=== PATIENT | male | born 1990 | race American Indian/Alaskan Native ===

== ENCOUNTER 2018-12-31 07:08 | Emergency (ER) | payer SELFPAY ==
[2018-12-31 07:15] VITALS: BP 142/85
--- NOTE | 2018-12-31 08:21 | Emergency Department Report ---
Eye Injury/Foreign Body - HPI Duration: 3 Days Eye Location: Left Severity: Moderate Eye Symptoms: Eye Pain: Yes, Blurred Vision: No, Eye Redness: Yes, Grinding/Hammering Metal: No, Used Eye Protection: No, Contact Lens Use: No, Recalls Injury: Yes, Photophobia: No ED Review of Systems ROS: Stated complaint: LT EYE RED/IRRIATATED Other details as noted in HPI Comment: All other systems reviewed and negative Constitutional: denies: chills, fever Eyes: eye pain, eye discharge. denies: vision change Cardiovascular: denies: chest pain, palpitations Gastrointestinal: denies: abdominal pain Musculoskeletal: denies: back pain Neurological: denies: headache, weakness, numbness, paresthesias, confusion ED Past Medical Hx - Past Medical History Previous Medical History?: No - Surgical History Past Surgical History?: No - Social History Smoking Status: Current Every Day Smoker Substance Use Type: None - Medications Home Medications: Home Medications Medication Instructions Recorded Confirmed Last Taken Type No Known Home Medications [No 01/26/16 01/26/16 Unknown History Reported Home Medications] Eye Injury Exam - Exam General: Vital signs noted. No distress. Alert and acting appropriately. - Visual Acuity Left Vision Acuity Degree: 20/20 Eye Exam: Left Injection, Both EOMI, Neither Chemosis, Neither Abnormal Pupil, Neither Eye Foreign Body, Neither Lid Foreign Body, Neither Mucous Discharge, Neither Purulent Discharge, Neither Fluorescein Uptake, Neither Fluorescein Uptake (slit lamp), Neither Corneal Edema, Neither Photophobia ED Course Vital Signs 12/31/18 07:11 Temperature 98.8 F Pulse Rate 102 H Respiratory 16 Rate Blood Pressure 142/85 O2 Sat by Pulse 96 Oximetry ED Medical Decision Making - Medical Decision Making Patient is 28 years old male with no significant past medical history. Patient presented to the ER complaining of left eye pain and redness for the last 4 days. Patient stated that he had some soapy spelled on his eyes while he was working 5 days ago. Patient stated that he felt the change the next day. Patient denied any visual changes. No photophobia. Extraocular movement intact. Patient denied any fever, chills, nausea or vomiting. Patient be given Polytrim and Patanol and advised to follow-up with medicaid plan compliance director in the next 2-3 days and to return to the ER if symptoms are not improved. Critical care attestation.: If time is entered above; I have spent that time in minutes in the direct care of this critically ill patient, excluding procedure time. ED Disposition Clinical Impression: Conjunctivitis Disposition: DC-01 TO HOME OR SELFCARE Is pt being admited?: No Condition: Stable Instructions: Conjunctivitis (ED) Referrals: LALI TUCKER MD [Staff Physician] - 3-5 Days
== END 2018-12-31 08:50 | disposition home or self-care (01) ==
LOC: ED 07:08
DX: H10.9 Unspecified conjunctivitis (principal); F17.200 Nicotine dependence, unspecified, uncomplicated

== ENCOUNTER 2020-04-16 10:26 | Emergency (ER) | payer SELFPAY ==
[2020-04-16 10:41] VITALS: BP 139/85
--- NOTE | 2020-04-16 10:44 | Event Note ---
ED Screening Note ED Screening Note: co bp elevated initially intermittent headache then co radicular pain of rle then added testicular numbness that comes and goes with testicular pain off and on no dc pmh none no trauma rx none cig etoh denies drugs no cp or sob This initial assessment/diagnostic orders/clinical plan/treatment(s) is/are subject to change based on patients health status, clinical progression and re- assessment by fellow clinical providers in the ED. Further treatment and workup at subsequent clinical providers discretion. Patient/guardian urged not to elope from the ED as their condition may be serious if not clinically assessed and managed. Initial orders include: us ro torsion ? sciatica lumbar etio bp normal
--- NOTE | 2020-04-16 11:47 | XRay Report ---
LUMBOSACRAL SPINE 3 VIEWS INDICATION: radicular pain. COMPARISON: None. IMPRESSION: Normal alignment. No significant discogenic DJD or facet arthropathy. No acute osseous or soft tissue abnormality. Signer Name: Alejandro Caruso Jr, MD Signed: 04/16/2020 11:42 AM Workstation Name: [id number]
--- NOTE | 2020-04-16 12:16 | Ultrasound Report ---
ULTRASOUND TESTICULAR DOPPLER COMPLETE HISTORY: Testicular pain and numbness TECHNIQUE: Grayscale ultrasound with color and spectral Doppler imaging. COMPARISON: None. FINDINGS: The right testicle measures 4.1 x 2.4 x 2.7 cm. The left testicle measures 4.2 x 2.2 x 2.7 cm. Both testicles are mildly heterogeneous but no evidence for cyst, mass or calcifications. Spectra l Doppler waveforms demonstrate arterial flow bilaterally. The epididymides are unremarkable. No hyperemia. No significant hydrocele or varicocele. IMPRESSION: No abnormality identified. Signer Name: Alejandro Caruso Jr, MD Signed: 04/16/2020 12:11 PM Workstation Name: [id number]
[2020-04-16 13:22] LABS: Bilirubin,Urine NEG (Negative); Blood,Urine NEG (Negative); Color,Urine Yellow (Yellow); Mucus,Urine FEW /HPF; Protein,Urine <15 mg/dL mg/dL (Negative)
--- NOTE | 2020-04-16 13:30 | Emergency Department Report ---
ED General Adult HPI - General Chief complaint: High BP Stated complaint: HIGH BLOOD PRESSURE/HEADACHE PUI?: No Time Seen by Provider: 04/16/20 10:37 Source: patient Mode of arrival: Ambulatory Limitations: No Limitations - History of Present Illness Initial comments: Patient is a 29-year-old male that checks into the ER today for blood pressure check. He has been checking his blood pressure at home and thought that it was elevated. On arrival his blood pressure is normal. He has no chest pain shortness of breath or headache. On further interview patient endorses testicular pain. He denies any dysuria or discharge. He is not concerned for STDs. He states that sometimes he notices that his testicles are numb and other times they are painful. He denies any trauma. He denies any back pain. He denies any nausea vomiting or diarrhea. He denies any abdominal pain. Patient then adds that he has had some right thigh pain. He denies any back injury. His symptoms are not consistent with cauda equina. He is urinating and defecating without difficulty. He is neuro intact with no focal deficit and ambulatory, [id number] in triage. -: Gradual, days(s) Improves with: none Worsens with: none Associated Symptoms: denies other symptoms Treatments Prior to Arrival: none - Related Data Allergies Allergy/AdvReac Type Severity Reaction Status Date / Time No Known Allergies Allergy Verified 04/16/20 10:38 ED Review of Systems ROS: Stated complaint: HIGH BLOOD PRESSURE/HEADACHE Other details as noted in HPI Comment: All other systems reviewed and negative ED Past Medical Hx - Past Medical History Previous Medical History?: No - Surgical History Past Surgical History?: No - Family History Family history: no significant - Social History Smoking Status: Never Smoker Substance Use Type: None ED Physical Exam - General Limitations: No Limitations General appearance: alert, in no apparent distress - Head Head exam: Present: atraumatic, normocephalic - Eye Eye exam: Present: normal appearance - ENT ENT exam: Present: mucous membranes moist - Neck Neck exam: Present: normal inspection - Respiratory Respiratory exam: Present: normal lung sounds bilaterally. Absent: respiratory distress - Cardiovascular Cardiovascular Exam: Present: regular rate, normal rhythm. Absent: systolic murmur, diastolic murmur, rubs, gallop - GI/Abdominal GI/Abdominal exam: Present: soft, normal bowel sounds - Rectal Rectal exam: Present: deferred - Extremities Exam Extremities exam: Present: normal inspection - Back Exam Back exam: Present: normal inspection - Neurological Exam Neurological exam: Present: alert, oriented X3 - Psychiatric Psychiatric exam: Present: normal affect, normal mood - Skin Skin exam: Present: warm, dry, intact, normal color. Absent: rash ED Course Vital Signs 04/16/20 10:40 Temperature 99.1 F Pulse Rate 101 H Respiratory 18 Rate Blood Pressure 139/85 O2 Sat by Pulse 99 Oximetry ED Medical Decision Making - Radiology Data Radiology results: report reviewed, image reviewed [facility] - Medical Decision Making Vital Signs 04/16/20 10:40 Temperature 99.1 F Pulse Rate 101 H Respiratory 18 Rate Blood Pressure 139/85 O2 Sat by Pulse 99 Oximetry Labs 04/16/20 12:57 Urine Color Yellow Urine Turbidity Clear Urine pH 6.0 Ur Specific [place] 1.016 Urine Protein <15 mg/dl Urine Glucose (UA) Neg Urine Ketones Neg Urine Blood Neg Urine Nitrite Neg Urine Bilirubin Neg Urine Urobilinogen 4.0 Ur Leukocyte Esterase Neg Urine WBC (Auto) 1.0 Urine RBC (Auto) 1.0 U Epithel Cells (Auto) < 1.0 Urine Mucus Few UA noted. lumbar xray noted Ultrasound noted. Patient discharged home with discharge plan of care including monitoring his blood pressure. He has been given referral to primary care for follow-up. Patient verbalizes understanding of discharge plan of care. Patient is ambulatory nontoxic and [id number] on discharge - Differential Diagnosis ro test torsion Critical care attestation.: If time is entered above; I have spent that time in minutes in the direct care of this critically ill patient, excluding procedure time. ED Disposition Clinical Impression: Wellness examination, Lumbar pain, Blood pressure check Disposition: TO HOME OR SELFCARE Is pt being admited?: No Does the pt Need Aspirin: No Condition: Stable Instructions: Hypertension, Adult, [id number], Back Injury Prevention Additional Instructions: MOTRIN OR TYLENOL FOR PAIN FOLLOW UP WITH PCP FOR BLOOD PRESSURE EVALUATION FOLLOW UP WITH [facility]THO IF LEG PAIN PERSISTS REFERRAL BELOW Referrals: JAVED OSPINA MD [Staff Physician] - 3-5 Days SHELLIE ZHAO MD [Staff Physician] - 3-5 Days Time of Disposition: 13:28
== END 2020-04-16 13:52 | disposition home or self-care (01) ==
LOC: ED 10:26
DX: M54.5 Low back pain (principal); Z01.30 Encounter for examination of blood pressure without abnormal findings
CPT/HCPCS: 72100; 81001; 93975

== ENCOUNTER 2021-08-22 07:09 | Emergency (ER) | payer SELFPAY ==
--- NOTE | 2021-08-22 08:32 | Emergency Department Report ---
ED Altered Mental Status HPI - General Chief Complaint: Altered Mental Status Stated Complaint: AMS Time Seen by Provider: 08/22/21 07:57 Source: family, EMS, old records reviewed Mode of arrival: Stretcher Limitations: Altered Mental Status, Physical Limitation - History of Present Illness Initial Comments: History provided by mother since patient will and will not communicate at this time. 30-year-old male with a past medical history of diabetes, hypertension, and sarcoidosis diagnosed 4 months ago presents to the hospital with alteration in mental status. Patient was previous prescribed insulin for his diabetes and blood pressure medication but has been noncompliant for 4 months since discharge from the hospital. 4 months ago he was admitted to [facility] for lower extremity weakness and was diagnosed with sarcoidosis. He was treated with steroids during that admission. He has been unable to ambulate since discharge. 1 month ago he was re-prescribed steroids by his doctor per patient's request for unclear reason. Mom states that she did not complete the 2-week course due to development of confusion. At his baseline patient requires a sitting walker and moves around the house by using his arms to push off the royal. For the last 2 weeks patient has been unable to do this and has been pretty much bedbound. Yesterday he slept all day and has been more confused improving much nonverbal since 4 AM. Based on history provided by mother it is unclear clear what is the patients underlying neurological problem. I have placed a request for medical records from Greg Dudley for further history Previous medical records reviewed. Admission visit from February 23-2021 provided by Greg Dudley Patient presented to the hospital for progressively worsening lower extremity weakness x2 months with previous admission in April 2020 for the same. Patient apparently did not follow-up with neurology as previously instructed. Apparently during his presentation to the hospital in February 2021 patient could walk but complained of bilateral leg weakness and pain with stiffness in his calf. During April 2020 admission patient was seen by ID, neurology, and pulmonology. Diagnosis of leptomeningitis, sarcoidosis, leptomeningeal carcinomatosis, infection status post LP with CSF pleocytosis with WBC 42, glucose 68, protein 112. Meningitis panel was negative, CFS culture was negative, fungal smear negative, HIV negative, hep C and syphilis negative, PIA 6. 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 As per his discharge summary from February 25, 2021 patient was diagnosed with neurosarcoidosis (which was his diagnosis in April 2020 as well) MRI of the L spine showed diffuse enhancement involving the cauda equina nerve roots, unchanged from April 2020 with recommendation to follow-up with neurologi st and neuro PT. had negative bilateral venous Dopplers of the lower extremity during admission. He is also prescribed insulin for hyperglycemia with a hemoglobin of 11.6 Patient's discharge medications included Humulin mix 70-3025 units twice daily before meals Metformin 1000 mg twice daily Protonix 40 mg daily Prednisone 60 mg daily As previous stated patient has been noncompliant with his medications. He did see a primary care doctor approximately 1 month ago and was represcribed prednisone x2 weeks but did not complete his course as per mother. Patient has his first appointment scheduled for neurologist on September 03. I have placed the [facility] medical record on chart for review. - Related Data Allergies Allergy/AdvReac Type Severity Reaction Status Date / Time No Known Allergies Allergy Verified 04/16/20 10:38 ED Review of Systems ROS: Stated complaint: AMS Other details as noted in HPI Comment: Unobtainable due to pts medical conditions ED Past Medical Hx - Past Medical History Previous Medical History?: Yes Hx Hypertension: Yes Hx Diabetes: Yes Additional medical history: Sarcoidosis, neurosarcoidosis - Surgical History Past Surgical History?: No - Social History Smoking Status: Never Smoker Substance Use Type: None ED Physical Exam - General Limitations: Altered Mental Status, Physical Limitation - Other Other exam information: General: No acute distress Head: Atraumatic Eyes: Opens eyes spontaneously, pupils equal reactive to light ENT: Dry mucous membrane Neck: Normal appearance, no midline tenderness Chest: Clear to auscultation bilaterally CV: Regular rate and rhythm Abdomen: Soft, normal bowel sounds, nontender, nondistended, no rebound or guarding Back: Normal inspection Extremity: Spontaneous movement Neuro: Eyes open spontaneously, drowsy, moves upper extremities spontaneously. Upper extremity sensation intact, no facial droop, nonverbal weak handgrip bilaterally. No movement of lower extremities (chronic) Psych: Drowsy with intermittent agitation, pulling off all the EKG leads continuous Skin: No rash ED Course Vital Signs 08/22/21 08/22/21 08/22/21 07:09 07:28 07:30 Temperature 98 F Pulse Rate 96 H 82 89 Respiratory 18 15 Rate Blood Pressure 103/78 93/74 O2 Sat by Pulse 98 96 Oximetry 08/22/21 08/22/21 08/22/21 07:46 08:00 11:27 Temperature Pulse Rate 84 91 H Respiratory 13 16 Rate Blood Pressure 93/74 93/74 117/83 O2 Sat by Pulse Oximetry - Consultations Consultation #1: 08/22/21 10:36 After previous medical record review I contacted the neuro Dr. Hardin to discuss case and treatment for possible exacerbation of neuro psychosis. She recommends Solu-Medrol 1 g IV. She will evaluate patient via tele monitor at the bedside 11:20 AM Case discussed with neurosurgeon Dr. Scott Holt who advises transfer to a place capable of managing shunt placement for hydrocephalus 08/22/21 11:38 Contacted [facility] transfer service. Neurosurgeon at [facility] requests images to be pushed to power Calvin for review prior to discussion and acceptance. 08/22/21 12:30 Case was discussed with Dr. Sommer with neurosurgery at [facility] upon call back at this time. He did not receive images. After case review he states that patient does not require neuro ICU and can be admitted to [facility] 08/22/21 13:05 I received call back from transfer service who reached out to Dr. Razo at [facility]. Apparently they do not have beds at [facility]. Dr. Sommer recontacted. Apparently there are not any beds available there either and therefore I would need to attempt transfer to another facility 08/22/21 13:13 [facility] transfer service called. Awaiting neurosurgery callback paged awaiting call 08/22/21 13:23 Patient accepted by neurosurgeon Dr. Minaya to [facility] ([facility]) - Lab Data Result diagrams: 08/22/21 08:29 08/22/21 08:29 Lab Results 08/22/21 08/22/21 08/22/21 Range/Units 08:29 08:29 08:29 WBC 5.2 (4.5-11.0) K/mm3 RBC 5.36 H (3.65-5.03) M/mm3 Hgb 14.2 (11.8-15.2) gm/dl Hct 43.4 (35.5-45.6) % MCV 81 L (84-94) fl MCH 26 L (28-32) pg MCHC 33 (32-34) % RDW 14.7 (13.2-15.2) % Plt Count 233 (140-440) K/mm3 Lymph % (Auto) 8.4 L (13.4-35.0) % Schuyler % (Auto) 11.8 H (0.0-7.3) % Eos % (Auto) 2.1 (0.0-4.3) % Baso % (Auto) 0.9 (0.0-1.8) % Lymph # (Auto) 0.4 L (1.2-5.4) K/mm3 Schuyler # (Auto) 0.6 (0.0-0.8) K/mm3 Eos # (Auto) 0.1 (0.0-0.4) K/mm3 Baso # (Auto) 0.0 (0.0-0.1) K/mm3 Seg Neutrophils % 76.8 H (40.0-70.0) % Seg Neutrophils # 4.0 (1.8-7.7) K/mm3 Sodium 132 L (137-145) mmol/L Potassium 3.4 L (3.6-5.0) mmol/L Chloride 92.0 L (98-107) mmol/L Carbon Dioxide 23 (22-30) mmol/L Anion Gap 20 mmol/L BUN 5 L (9-20) mg/dL Creatinine 0.7 L (0.8-1.3) mg/dL Estimated GFR > 60 ml/min BUN/Creatinine Ratio 7 % Glucose 182 H (75-100) mg/dL Hemoglobin A1c (4-6) % Calcium 10.6 H (8.4-10.2) mg/dL Magnesium 1.60 L (1.7-2.3) mg/dL Total Bilirubin 0.70 (0.1-1.2) mg/dL AST 59 H (5-40) units/L ALT 42 (7-56) units/L Alkaline Phosphatase 108 (35-129) units/L Ammonia 30.0 (25-60) umol/L Total Creatine Kinase (55-170) units/L Total Protein 7.5 (6.3-8.2) g/dL Albumin 3.9 (3.9-5) g/dL Albumin/Globulin Ratio 1.1 % Urine Color (Yellow) Urine Turbidity (Clear) Urine pH (5.0-7.0) Ur Specific [place] (1.003-1.030) Urine Protein (Negative) mg/dL Urine Glucose (UA) (Negative) mg/dL Urine Ketones (Negative) mg/dL Urine Blood (Negative) Urine Nitrite (Negative) Urine Bilirubin (Negative) Urine Urobilinogen (<2.0) mg/dL Ur Leukocyte Esterase (Negative) Urine WBC (Auto) (0.0-6.0) /HPF Urine RBC (Auto) (0.0-6.0) /HPF Urine Mucus /HPF Urine Opiates Screen Urine Methadone Screen Ur Barbiturates Screen Ur Phencyclidine Scrn Ur Amphetamines Screen U Benzodiazepines Scrn Urine Cocaine Screen U Marijuana (THC) Screen Drugs of Abuse Note Plasma/Serum Alcohol (0-0.07) % 08/22/21 08/22/21 08/22/21 Range/Units 08:29 08:29 11:51 WBC (4.5-11.0) K/mm3 RBC (3.65-5.03) M/mm3 Hgb (11.8-15.2) gm/dl Hct (35.5-45.6) % MCV (84-94) fl MCH (28-32) pg MCHC (32-34) % RDW (13.2-15.2) % Plt Count (140-440) K/mm3 Lymph % (Auto) (13.4-35.0) % Schuyler % (Auto) (0.0-7.3) % Eos % (Auto) (0.0-4.3) % Baso % (Auto) (0.0-1.8) % Lymph # (Auto) (1.2-5.4) K/mm3 Schuyler # (Auto) (0.0-0.8) K/mm3 Eos # (Auto) (0.0-0.4) K/mm3 Baso # (Auto) (0.0-0.1) K/mm3 Seg Neutrophils % (40.0-70.0) % Seg Neutrophils # (1.8-7.7) K/mm3 Sodium (137-145) mmol/L Potassium (3.6-5.0) mmol/L Chloride (98-107) mmol/L Carbon Dioxide (22-30) mmol/L Anion Gap mmol/L BUN (9-20) mg/dL Creatinine (0.8-1.3) mg/dL Estimated GFR ml/min BUN/Creatinine Ratio % Glucose (75-100) mg/dL Hemoglobin A1c (4-6) % Calcium (8.4-10.2) mg/dL Magnesium 1.60 L (1.7-2.3) mg/dL Total Bilirubin (0.1-1.2) mg/dL AST (5-40) units/L ALT (7-56) units/L Alkaline Phosphatase (35-129) units/L Ammonia (25-60) umol/L Total Creatine Kinase 192 H (55-170) units/L Total Protein (6.3-8.2) g/dL Albumin (3.9-5) g/dL Albumin/Globulin Ratio % Urine Color Yellow (Yellow) Urine Turbidity Clear (Clear) Urine pH 5.0 (5.0-7.0) Ur Specific [place] 1.009 (1.003-1.030) Urine Protein <15 mg/dl (Negative) mg/dL Urine Glucose (UA) Neg (Negative) mg/dL Urine Ketones Tr (Negative) mg/dL Urine Blood Sm (Negative) Urine Nitrite Neg (Negative) Urine Bilirubin Neg (Negative) Urine Urobilinogen 2.0 (<2.0) mg/dL Ur Leukocyte Esterase Neg (Negative) Urine WBC (Auto) 5.0 (0.0-6.0) /HPF Urine RBC (Auto) 3.0 (0.0-6.0) /HPF Urine Mucus Few /HPF Urine Opiates Screen Urine Methadone Screen Ur Barbiturates Screen Ur Phencyclidine Scrn Ur Amphetamines Screen U Benzodiazepines Scrn Urine Cocaine Screen U Marijuana (THC) Screen Drugs of Abuse Note Plasma/Serum Alcohol < 0.01 (0-0.07) % 08/22/21 08/22/21 Range/Units 11:51 Unknown WBC (4.5-11.0) K/mm3 RBC (3.65-5.03) M/mm3 Hgb (11.8-15.2) gm/dl Hct (35.5-45.6) % MCV (84-94) fl MCH (28-32) pg MCHC (32-34) % RDW (13.2-15.2) % Plt Count (140-440) K/mm3 Lymph % (Auto) (13.4-35.0) % Schuyler % (Auto) (0.0-7.3) % Eos % (Auto) (0.0-4.3) % Baso % (Auto) (0.0-1.8) % Lymph # (Auto) (1.2-5.4) K/mm3 Schuyler # (Auto) (0.0-0.8) K/mm3 Eos # (Auto) (0.0-0.4) K/mm3 Baso # (Auto) (0.0-0.1) K/mm3 Seg Neutrophils % (40.0-70.0) % Seg Neutrophils # (1.8-7.7) K/mm3 Sodium (137-145) mmol/L Potassium (3.6-5.0) mmol/L Chloride (98-107) mmol/L Carbon Dioxide (22-30) mmol/L Anion Gap mmol/L BUN (9-20) mg/dL Creatinine (0.8-1.3) mg/dL Estimated GFR ml/min BUN/Creatinine Ratio % Glucose (75-100) mg/dL Hemoglobin A1c 7.3 H (4-6) % Calcium (8.4-10.2) mg/dL Magnesium (1.7-2.3) mg/dL Total Bilirubin (0.1-1.2) mg/dL AST (5-40) units/L ALT (7-56) units/L Alkaline Phosphatase (35-129) units/L Ammonia (25-60) umol/L Total Creatine Kinase (55-170) units/L Total Protein (6.3-8.2) g/dL Albumin (3.9-5) g/dL Albumin/Globulin Ratio % Urine Color (Yellow) Urine Turbidity (Clear) Urine pH (5.0-7.0) Ur Specific [place] (1.003-1.030) Urine Protein (Negative) mg/dL Urine Glucose (UA) (Negative) mg/dL Urine Ketones (Negative) mg/dL Urine Blood (Negative) Urine Nitrite (Negative) Urine Bilirubin (Negative) Urine Urobilinogen (<2.0) mg/dL Ur Leukocyte Esterase (Negative) Urine WBC (Auto) (0.0-6.0) /HPF Urine RBC (Auto) (0.0-6.0) /HPF Urine Mucus /HPF Urine Opiates Screen Negative Urine Methadone Screen Negative Ur Barbiturates Screen Negative Ur Phencyclidine Scrn Negative Ur Amphetamines Screen Negative U Benzodiazepines Scrn Negative Urine Cocaine Screen Negative U Marijuana (THC) Screen Negative Drugs of Abuse Note Disclamer Plasma/Serum Alcohol (0-0.07) % - Radiology Data Radiology results: report reviewed CT head/brain wo con INDICATION: altered mental status. TECHNIQUE: Routine CT head. All CT scans at this location are performed using CT dose reduction for ALARA by means of automated exposure control. COMPARISON: None. FINDINGS: Intracranial: The third and lateral ventricular caliber is enlarged and there is periventricular hypoattenuation. Fourth ventricle is normal. No mass is seen at the cerebral aqueduct. Chamberlain-white matter differentiation is maintained. No intracranial hemorrhage. No extra axial collection. No herniation. Sinuses: Paranasal sinuses and mastoid air cells are essentially clear. Orbits: Globes are intact. Calvarium: No acute fracture. IMPRESSION: 1. Hydrocephalus with transependymal flow. Recommend neurosurgical consultation for shunt placement. 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 I spoke with the provider and the patient has a history of sarcoidosis, and thus this is most likely secondary to neurosarcoidosis. Recommend MRI with and without contrast to further characterize after the neurosurgery consult. I informed Dr. Juan Irby 10:05 CHEST 1 VIEW INDICATION / CLINICAL INFORMATION: [facility] STUDY TIME: 1206 COMPARISON: None available. FINDINGS: SUPPORT DEVICES: None HEART / MEDIASTINUM: No significant abnormality. LUNGS / PLEURA: No significant acute pulmonary or pleural abnormality. No pneumothorax. ADDITIONAL FINDINGS: No significant additional findings. 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 Patient has findings of hydrocephalus likely secondary neurosarcoid. Patient treated with Solu-Medrol 1 g and will need to be transferred to a facility with cerebral shunt placement and monitoring capabilities. [facility] ([facility]) has accepted the patient. Patient also has mild hypomagnesemia and hypokalemia which was supplemented in the ED. Mother at the bedside and informed of patient's diagnosis and need for transfer. Copy of [facility] record will be included with transfer paperwork. Critical Care Time: Yes Critical care time in (mins) excluding proc time.: 75 Critical care attestation.: If time is entered above; I have spent that time in minutes in the direct care of this critically ill patient, excluding procedure time. Critical Care Time: 75 Minutes of critical care time excluding procedures were used in the care of the patient. I discussed treatment plan with the nursing team members. I spoke with family to obtain medical history.I obtained records from outside hospital reviewed them. Patient required multiple interventions and reassessments. Spoke to multiple consultants regarding guidance and coordinated transfer to a facility with neurosurgery capabilities. ED Disposition Clinical Impression: Hydrocephalus, Neurosarcoidosis, Altered mental status, Leg weakness, bilateral, Hypomagnesemia, Hypokalemia Disposition: 02 SHORT TERM HOSPITAL Is pt being admited?: No Does the pt Need Aspirin: No Condition: Stable Time of Disposition: 13:34
[2021-08-22 09:56] LABS: Basophils % (Auto) 0.9 % (0.0-1.8); Eosinophils # (Auto) 0.1 K/mm3 (0.0-0.4); Eosinophils % (Auto) 2.1 % (0.0-4.3); Hematocrit 43.4 % (35.5-45.6); Hemoglobin 14.2 gm/dl (11.8-15.2); Lymphocytes # (Auto) 0.4 K/mm3 (1.2-5.4); Lymphocytes % (Auto) 8.4 % (13.4-35.0); Mean Corpuscular HGB Conc 33 % (32-34); Mean Corpuscular Volume 81 fl (84-94); Monocytes # (Auto) 0.6 K/mm3 (0.0-0.8); Monocytes % (Auto) 11.8 % (0.0-7.3); Platelet Count 233 K/mm3 (140-440); Red Blood Count 5.36 M/mm3 (3.65-5.03); Red Cell Distribution Width 14.7 % (13.2-15.2)
[2021-08-22 09:59] LABS: Alanine Aminotransferase 42 units/L (7-56); Albumin 3.9 g/dL (3.9-5); Blood Urea Nitrogen 5 mg/dL (9-20); Calcium 10.6 mg/dL (8.4-10.2); Hemolysis Index 2
[2021-08-22 10:01] LABS: BUN/Creatinine Ratio 7
[2021-08-22] MEDS ORDERED: MAGNESIUM SULFATE 2 GM/50 ML BAG IV ONE (10:19)
[2021-08-22] MEDS ORDERED: FAMOTIDINE 20 MG/2 ML INJ IV ONE (10:43)
[2021-08-22] MEDS ORDERED: methylPREDNISolone Sod Suc 1,000 MG in SODIUM CHLORIDE 0.9% 250ML 250 ML IV ONE (11:00)
[2021-08-22] MEDS: POTASSIUM CHLORIDE 10 MEQ 10 MEQ/100 ML BAG IV SCH ×2 (11:15→13:30)
--- NOTE | 2021-08-22 11:18 | Cat Scan Report ---
CT head/brain wo con INDICATION: altered mental status. TECHNIQUE: Routine CT head. All CT scans at this location are performed using CT dose reduction for A CYNDY by means of automated exposure control. COMPARISON: None. FINDINGS: Intracranial: The third and lateral ventricular caliber is enlarged and there is periventricular hypo attenuation. Fourth ventricle is normal. No mass is seen at the cerebral aqueduct. Chamberlain-white matter differentiation is maintained. No intracranial hemorrhage. No extra axial collection. No herniation. Sinuses: Paranasal sinuses and mastoid air cells are essentially clear. Orbits: Globes are intact. Calvarium: No acute fracture. IMPRESSION: 1. Hydrocephalus with transependymal flow. Recommend neurosurgical consultation for shunt placement. The lateral and third ventricles are enlarged and the fourth ventricle appears normal consistent wit h obstructive hydrocephalus at the cerebral aqueduct. I spoke with the provider and the patient has a history of sarcoidosis, and thus this is most likely secondary to neurosarcoidosis. Recommend MRI wi th and without contrast to further characterize after the neurosurgery consult. I informed Dr. Juan Irby 10:05 Signer Name: Liam David MD Signed: 08/22/2021 11:14 AM Workstation Name: [id number]
--- NOTE | 2021-08-22 11:30 | Emergency Department Report ---
Blank Doc - Documentation Documentation: [facility] Consult Note # Demographics Consult Type: General Neurology Patient Location: Emergency Room First Name: luana Last Name: tony Date of : 1990 Age: 30 Gender: Male Facility: [facility] Time of Initial Page (Eastern Time): 08/22/2021, 10:22 Time of Return Call (Eastern Time): 08/22/2021, 10:23 # HPI History: 30yo M presents with AMS with family. has been diagnosis with sarcoid and is non-ambulatory due to this. since last night around 2200, he woke without being ancelmo to speak, restless. at baseline he is in a walker/chair and has not been able to use his legs. has had 2 weeks of confusion 1 year ago had MRIs showing leptomeningeal enhancement and ultimately diagnosed with sarcoid as the reason. in feb had same admission with same MRI findings, discharged on prednisone, but didn't take on discharge. # Exam Mental Status: does not follow commands confused Language: non-verbal Motor: LE weakness # H-FH-SH Past Medical History: Diabetes hypertension neurosarcoid Medications: non-compliant with medications # Assessment Impression: given pt has not been on steroids or other treatment for sarcoid and had ongoing neurolgic symptoms from this, highly suspicious for neruosarcoid as the reason for worsening and ongoing weakness. needs high dose steroids # Plan Imaging: (urgency: routine): MRI Brain with AND without contrast MRI C spine MRI T spine MRI L spine wwo contrast Therapy/Evaluation: PT/OT evaluation Additional Recommendations: IV solumedrol 1gm q24 hours x5 days followed by prednisone 40mg daily pt needs to be on chronic steroids or at least a steroid sparing agent. needs a neurologist to follow with as well # Logistics Telemedicine: Interactive 2 way audio and visual telecommunication technology was utilized during this visit
[2021-08-22 12:46] LABS: Bilirubin,Urine NEG (Negative); Blood,Urine SM (Negative); Color,Urine Yellow (Yellow); Protein,Urine <15 mg/dL mg/dL (Negative)
[2021-08-22 12:47] LABS: Mucus,Urine FEW /HPF
--- NOTE | 2021-08-22 12:56 | XRay Report ---
CHEST 1 VIEW INDICATION / CLINICAL INFORMATION: [facility] STUDY TIME: 1206 COMPARISON: None available. FINDINGS: SUPPORT DEVICES: None HEART / MEDIASTINUM: No significant abnormality. LUNGS / PLEURA: No significant acute pulmonary or pleural abnormality. No pneumothorax. ADDITIONAL FINDINGS: No significant additional findings. Signer Name: Chase Fowler MD Signed: 08/22/2021 12:52 PM Workstation Name: [id number]
[2021-08-22 12:59] LABS: Amphetamine Screen,Urine Negative; Benzodiazepines Screen,Urine Negative; Cannabinoid Screen,Urine Negative; Cocaine Screen,Urine Negative; Methadone Screen,Urine Negative; Opiate Screen,Urine Negative
[2021-08-22 15:15] VITALS: BP 128/81
--- NOTE | 2021-08-23 15:16 | Electrocardiograph Report ---
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
== END 2021-08-22 14:55 | disposition short-term general hospital (02) ==
LOC: ED 07:09
DX: R41.82 Altered mental status, unspecified (principal); G91.9 Hydrocephalus, unspecified; D86.89 Sarcoidosis of other sites; R53.1 Weakness; E83.42 Hypomagnesemia; E87.6 Hypokalemia; I10 Essential (primary) hypertension; E11.9 Type 2 diabetes mellitus without complications
CPT/HCPCS: 36415; 70450; 71045; 80053; 80307; 81001; 82140; 82550; 83036; 83735; 85025; 93005; 96365; 96366; 96368; 96375; 99291; 99292; J2930; J3475; J3480; J3490; J7050; 80320; G0480